=== PATIENT | female | born 1960 | race Two or more races ===

== ENCOUNTER 2023-07-07 11:12 | Emergency (ER) | payer OTHER ==
[~2023-07-07] VITALS: Ht 165.1 cm; Wt 67.1 kg
[2023-07-07] MEDS ORDERED: CARISOPRODOL 350 MG TABLET ONE (11:55)
[2023-07-07] MEDS: CARISOPRODOL 350 MG TABLET PO ONE (11:58)
[2023-07-07] MEDS ORDERED: CARI350T PO (12:16)
[2023-07-07 12:56] VITALS: BP 126/74; TEMP 98.2; O2SAT 100
== END 2023-07-07 12:57 | disposition home or self-care (01) ==
LOC: ER 11:19
DX: R51.9 Headache, unspecified (principal); Z88.1 Allergy status to other antibiotic agents
CPT/HCPCS: 70450-TC

== ENCOUNTER 2023-10-23 08:52 | Emergency (ER) | payer OTHER ==
[~2023-10-23] VITALS: Ht 162.6 cm; Wt 63.5 kg
[~2023-10-23 08:52] MED LIST: CARI350T PO
[2023-10-23 08:59] VITALS: TEMP 98.6
[2023-10-23] MEDS ORDERED: HYDROCODONE/APAP 5/325MG TABLET ONE (09:11)
[2023-10-23] MEDS: HYDROCODONE/APAP 5/325MG TABLET PO ONE (09:12)
[2023-10-23] MEDS ORDERED: LIDO30AD10 TP (10:29)
[2023-10-23] MEDS ORDERED: HYDR-3972 PO (10:29)
[2023-10-23 12:18] VITALS: BP 108/70; O2SAT 99
== END 2023-10-23 10:55 | disposition home or self-care (01) ==
LOC: ER 08:52
DX: S83.92XA Sprain of unspecified site of left knee, initial encounter (principal); Z88.8 Allergy status to other drugs, medicaments and biological substances; W01.198A Fall on same level from slipping, tripping and stumbling with subsequent striking against other object, initial encounter; Y93.89 Activity, other specified; Y92.098 Other place in other non-institutional residence as the place of occurrence of the external cause; Y99.8 Other external cause status
CPT/HCPCS: 73564-TC